=== PATIENT | female | born 1970 | race Caucasian/White ===

== ENCOUNTER 2022-04-21 17:13 | Observation (INO) ==
[2022-04-21] MEDS ORDERED: Ondansetron 4 MG/2 ML VIAL IVP ONE (17:18)
[2022-04-21] MEDS ORDERED: 0.9 % Sodium Chloride 1,000 ML IVC ONE (17:18)
[2022-04-21 17:36] LABS: Bilirubin,Urine Small (Negative); Blood,Urine Large (Negative); Clarity,Urine Cloudy (Clear); Glucose,Urine (UA) Normal (Normal); Ketones,Urine Trace mg/dL (Negative); Leukocyte Esterase,Urine Small (Negative); Nitrite,Urine Negative (Negative); Protein,Urine 100 mg/dL (Neg-Trace); Urobilinogen,Urine >=8.0 mg/dL (Normal)
[2022-04-21 17:37] LABS: Color,Urine Dark Yellow (Yellow)
[2022-04-21 17:38] LABS: Basophils # 0.1 K/mcL (0.0-0.2); Basophils % 0.7 %; Eosinophils # 0.1 K/mcL (0.0-0.6); Eosinophils % 0.6 %; Hematocrit 46.1 % (35.3-44.9); Hemoglobin 15.3 g/dL (11.5-15.4); Immature Granulocytes % 2.3 % (0-4); Lymphocytes % 23.9 %; Mean Corpuscular HGB Conc 33.2 g/dL (31.6-35.5); Mean Corpuscular Hemoglobin 32.3 pg (28.0-33.3); Mean Corpuscular Volume 97.3 fL (83.0-100.0); Monocytes # 0.5 K/mcL (0.0-1.3); Monocytes % 3.6 %; Neutrophils # 8.5 K/mcL (1.6-8.9); Platelet Count 323 K/mcL (140-400); Red Blood Count 4.74 M/mcL (3.82-4.97); Red Cell Distribution Width 13.4 % (11.5-14.5); Segmented Neutrophils % 68.9 %; White Blood Count 12.4 K/mcL (4.3-11.1)
[2022-04-21 17:45] LABS: Amorphous Sediment,Urine Few per hpf (None-Few); Bacteria,Urine Many per hpf (None-Few); RBC,Urine 15-30 per hpf (0-3); Squamous Epithelial Cell,Urine Moderate per hpf (None-Few)
[2022-04-21] MEDS ORDERED: Lidocaine Viscous Oral Soln 15 ML SOLUTION MM ONE (17:53)
[2022-04-21 18:12] LABS: Alanine Aminotransferase 42 Units/L (7-52); Albumin/Globulin Ratio 0.9 (1.1-2.2); Alkaline Phosphatase 435 Units/L (34-104); Amylase < 10 Units/L (29-103); Aspartate Amino Transferase 70 Units/L (13-39); BUN/Creatinine Ratio 18 (6-26); Bilirubin,Direct 0.2 mg/dL (0.0-0.2); Bilirubin,Indirect 0.3 mg/dL (0.0-1.0); Bilirubin,Total 0.5 mg/dL (0.3-1.0); Blood Urea Nitrogen 10 mg/dL (6-20); Calcium 8.8 mg/dL (8.6-10.3); Carbon Dioxide 32 mEq/L (23-29); Chloride 98 mEq/L (98-107); Globulin 3.4 g/dL (2.4-3.5); Glucose 137 mg/dL (70-105); Lipase < 3 Units/L (11-82); Osmolality,Calculated 287 (280-300); Potassium 3.5 mEq/L (3.5-5.1); Sodium 138 mEq/L (136-145); Total Protein 6.4 g/dL (6.4-8.9); eGFR For African Americans > 60 (> 60); eGFR For Non-African Americans > 60 (> 60)
[2022-04-21] MEDS ORDERED: Milk and Molasses Enema 200 ML RC ONE (19:39)
[2022-04-21] MEDS ORDERED: Preparation H Ointment 57 GM TUBE TP PRN (19:39)
[2022-04-21] MEDS ORDERED: Naloxone 0.4 MG/ML INJ IVP PRN (19:39)
[2022-04-21] MEDS ORDERED: Ketorolac 30 MG/ML VIAL IM PRN (19:39)
[2022-04-21] MEDS: Ondansetron ODT 4 MG TAB.RAPDIS PO PRN (20:13)
[2022-04-21] MEDS: 0.9 % Sodium Chloride 1,000 ML IVC SCH (20:14)
[2022-04-21] MEDS ORDERED: cefTRIAXone 2,000 MG in 0.9 % Sodium Chloride 10 ML IVP ONE (21:00)
[2022-04-21] MEDS: polyethylene glycoL 3350 17 GM POWD.PACK PO SCH (22:20)
[2022-04-21] MEDS: *HR* LORazepam 2 MG/ML VIAL IVP PRN (22:33)
[2022-04-21] MEDS: Ketorolac 30 MG/ML VIAL IVP PRN (22:34)
[2022-04-22] MEDS: polyethylene glycoL 3350 17 GM POWD.PACK PO SCH ×4 (01:40→19:36)
[2022-04-22] MEDS: 0.9 % Sodium Chloride 1,000 ML IVC SCH (04:12)
[2022-04-22 07:30] LABS: Hematocrit 43.6 % (35.3-44.9); Hemoglobin 13.9 g/dL (11.5-15.4); Mean Corpuscular HGB Conc 31.9 g/dL (31.6-35.5); Mean Corpuscular Volume 100.2 fL (83.0-100.0); Platelet Count 297 K/mcL (140-400); Red Blood Count 4.35 M/mcL (3.82-4.97); Red Cell Distribution Width 13.7 % (11.5-14.5); White Blood Count 9.1 K/mcL (4.3-11.1)
[2022-04-22] MEDS: Nicotine 21 MG PATCH.TD24 TD SCH (08:27)
[2022-04-22 09:52] LABS: Alanine Aminotransferase 52 Units/L (7-52); Albumin 2.7 g/dL (3.5-5.7); Albumin/Globulin Ratio 0.8 (1.1-2.2); Alkaline Phosphatase 440 Units/L (34-104); Aspartate Amino Transferase 108 Units/L (13-39); BUN/Creatinine Ratio 13 (6-26); Bilirubin,Total 0.4 mg/dL (0.3-1.0); Blood Urea Nitrogen 7 mg/dL (6-20); Calcium 8.2 mg/dL (8.6-10.3); Carbon Dioxide 32 mEq/L (23-29); Chloride 106 mEq/L (98-107); Globulin 3.4 g/dL (2.4-3.5); Glucose 89 mg/dL (70-105); Lipase < 3 Units/L (11-82); Osmolality,Calculated 291 (280-300); Potassium 4.2 mEq/L (3.5-5.1); Sodium 142 mEq/L (136-145); Total Protein 6.1 g/dL (6.4-8.9); eGFR For African Americans > 60 (> 60); eGFR For Non-African Americans > 60 (> 60)
[2022-04-22] MEDS: Ipratropium 1 PUFF INHALER IH SCH ×3 (10:40→22:59)
[2022-04-22] MEDS: Ondansetron ODT 4 MG TAB.RAPDIS PO PRN (13:48)
[2022-04-22] MEDS ORDERED: PARoxetine 20 MG TABLET PO SCH (15:41)
[2022-04-22] MEDS ORDERED: Benzonatate 100 MG CAPSULE PO PRN (17:06)
[2022-04-22] MEDS ORDERED: Acetaminophen/Butalbital/CaffeineTABLET PO PRN (17:33)
[2022-04-22] MEDS ORDERED: Simethicone 80 MG TAB.CHEW PO PRN (18:52)
[2022-04-22] MEDS: *HR* LORazepam 2 MG/ML VIAL IVP PRN (19:35)
[2022-04-22] MEDS: Ketorolac 30 MG/ML VIAL IVP PRN (19:35)
[2022-04-22] MEDS: Topiramate 25 MG TABLET PO SCH (20:53)
[2022-04-22] MEDS: Gabapentin 300 MG CAPSULE PO SCH (20:53)
[2022-04-22] MEDS: Budesonide/Formoterol 160/4.5 1 PUFF INH IH SCH (22:59)
[2022-04-23] MEDS: polyethylene glycoL 3350 17 GM POWD.PACK PO SCH ×4 (02:46→20:57)
[2022-04-23] MEDS: Ipratropium 1 PUFF INHALER IH SCH ×2 (04:14→08:35)
[2022-04-23] MEDS: *HR* Enoxaparin 40 MG/0.4 ML SYRINGE SQ SCH (05:36)
[2022-04-23 07:38] LABS: Basophils # 0.1 K/mcL (0.0-0.2); Basophils % 0.6 %; Eosinophils # 0.1 K/mcL (0.0-0.6); Eosinophils % 1.1 %; Hematocrit 39.2 % (35.3-44.9); Hemoglobin 12.5 g/dL (11.5-15.4); Immature Granulocytes % 2.1 % (0-4); Lymphocytes # 2.5 K/mcL (0.6-4.6); Lymphocytes % 27.7 %; Mean Corpuscular HGB Conc 31.9 g/dL (31.6-35.5); Mean Corpuscular Hemoglobin 31.6 pg (28.0-33.3); Mean Corpuscular Volume 99.2 fL (83.0-100.0); Mean Platelet Volume 10.1 fL (9.4-12.4); Monocytes # 0.3 K/mcL (0.0-1.3); Monocytes % 3.1 %; Neutrophils # 5.8 K/mcL (1.6-8.9); Platelet Count 290 K/mcL (140-400); Red Blood Count 3.95 M/mcL (3.82-4.97); Red Cell Distribution Width 13.4 % (11.5-14.5); Segmented Neutrophils % 65.4 %; White Blood Count 8.9 K/mcL (4.3-11.1)
[2022-04-23 07:55] LABS: BUN/Creatinine Ratio 13 (6-26); Blood Urea Nitrogen 6 mg/dL (6-20); Calcium 8.3 mg/dL (8.6-10.3); Carbon Dioxide 26 mEq/L (23-29); Chloride 105 mEq/L (98-107); Glucose 88 mg/dL (70-105); Osmolality,Calculated 281 (280-300); Potassium 3.9 mEq/L (3.5-5.1); Sodium 137 mEq/L (136-145); eGFR For African Americans > 60 (> 60); eGFR For Non-African Americans > 60 (> 60)
[2022-04-23] MEDS: Budesonide/Formoterol 160/4.5 1 PUFF INH IH SCH ×2 (08:36→22:21)
[2022-04-23] MEDS: Cholecalciferol (D-3) 1,000 UNIT (25MCG) TABLET PO SCH (08:48)
[2022-04-23] MEDS: Gabapentin 300 MG CAPSULE PO SCH ×2 (08:48→20:56)
[2022-04-23] MEDS: Ascorbic Acid 500 MG TABLET PO SCH (08:48)
[2022-04-23] MEDS: Topiramate 25 MG TABLET PO SCH ×2 (08:49→20:56)
[2022-04-23] MEDS: Magnesium Oxide 400 MG TABLET PO SCH (08:49)
[2022-04-23] MEDS: Nicotine 21 MG PATCH.TD24 TD SCH ×2 (08:52→20:55)
[2022-04-23] MEDS: Ketorolac 30 MG/ML VIAL IVP PRN (09:22)
[2022-04-23] MEDS: Ondansetron ODT 4 MG TAB.RAPDIS SL PRN (09:22)
[2022-04-23] MEDS ORDERED: Ipratropium 1 PUFF INHALER IH PRN (09:28)
[2022-04-23] MEDS: *HR* Buprenorphine HCl 8 MG TAB.SUBL SL SCH ×2 (12:46→20:56)
[2022-04-23] MEDS: *HR* LORazepam 2 MG/ML VIAL IVP PRN ×2 (14:21→20:56)
[2022-04-23] MEDS: Methylphenidate HCl 10 MG TABLET PO SCH (16:32)
[2022-04-23] MEDS: PARoxetine 20 MG TABLET PO SCH (16:33)
[2022-04-24] MEDS: polyethylene glycoL 3350 17 GM POWD.PACK PO SCH ×4 (04:59→17:25)
[2022-04-24] MEDS: *HR* Enoxaparin 40 MG/0.4 ML SYRINGE SQ SCH (06:37)
[2022-04-24] MEDS: *HR* LORazepam 2 MG/ML VIAL IVP PRN (06:37)
[2022-04-24 08:17] LABS: Basophils % 0.5 %; Eosinophils # 0.2 K/mcL (0.0-0.6); Eosinophils % 1.9 %; Hematocrit 40.9 % (35.3-44.9); Hemoglobin 13.1 g/dL (11.5-15.4); Immature Granulocytes % 2.3 % (0-4); Lymphocytes % 25.2 %; Mean Corpuscular Hemoglobin 31.7 pg (28.0-33.3); Mean Platelet Volume 9.8 fL (9.4-12.4); Monocytes # 0.3 K/mcL (0.0-1.3); Monocytes % 4.3 %; Neutrophils # 5.3 K/mcL (1.6-8.9); Platelet Count 317 K/mcL (140-400); Red Blood Count 4.13 M/mcL (3.82-4.97); Red Cell Distribution Width 13.5 % (11.5-14.5); Segmented Neutrophils % 65.8 %
[2022-04-24 08:47] LABS: BUN/Creatinine Ratio 12 (6-26); Blood Urea Nitrogen 6 mg/dL (6-20); Calcium 8.7 mg/dL (8.6-10.3); Carbon Dioxide 28 mEq/L (23-29); Chloride 104 mEq/L (98-107); Glucose 87 mg/dL (70-105); Osmolality,Calculated 285 (280-300); Potassium 3.9 mEq/L (3.5-5.1); Sodium 139 mEq/L (136-145); eGFR For African Americans > 60 (> 60); eGFR For Non-African Americans > 60 (> 60)
[2022-04-24] MEDS: Ascorbic Acid 500 MG TABLET PO SCH (10:31)
[2022-04-24] MEDS: Topiramate 25 MG TABLET PO SCH ×2 (10:31→20:53)
[2022-04-24] MEDS: Methylphenidate HCl 10 MG TABLET PO SCH ×2 (10:31→16:01)
[2022-04-24] MEDS: PARoxetine 20 MG TABLET PO SCH (10:31)
[2022-04-24] MEDS: Magnesium Oxide 400 MG TABLET PO SCH (10:31)
[2022-04-24] MEDS: Cholecalciferol (D-3) 1,000 UNIT (25MCG) TABLET PO SCH (10:31)
[2022-04-24] MEDS: Nicotine 21 MG PATCH.TD24 TD SCH (10:32)
[2022-04-24] MEDS: Gabapentin 300 MG CAPSULE PO SCH ×2 (10:32→20:54)
[2022-04-24] MEDS: *HR* Buprenorphine HCl 8 MG TAB.SUBL SL SCH ×2 (10:39→20:54)
[2022-04-24] MEDS: Budesonide/Formoterol 160/4.5 1 PUFF INH IH SCH ×2 (11:31→22:47)
[2022-04-24] MEDS: Multivit/Ca/Min/Fe/FA 1 TAB TABLET PO SCH (17:25)
[2022-04-24 19:46] VITALS: RESP 18
[2022-04-24] MEDS: Ondansetron ODT 4 MG TAB.RAPDIS SL PRN (20:49)
[2022-04-24] MEDS: SUMAtriptan succinate 25 MG TABLET PO PRN (21:34)
[2022-04-25] MEDS: polyethylene glycoL 3350 17 GM POWD.PACK PO SCH ×3 (03:30→12:23)
[2022-04-25] MEDS: *HR* Enoxaparin 40 MG/0.4 ML SYRINGE SQ SCH (06:02)
[2022-04-25 07:02] VITALS: BP 137/74; PULSE 73; TEMP 98.6
[2022-04-25] MEDS: Methylphenidate HCl 10 MG TABLET PO SCH ×2 (08:06→12:23)
[2022-04-25] MEDS: *HR* Buprenorphine HCl 8 MG TAB.SUBL SL SCH (08:07)
[2022-04-25] MEDS: Gabapentin 300 MG CAPSULE PO SCH (08:07)
[2022-04-25] MEDS: Magnesium Oxide 400 MG TABLET PO SCH (08:07)
[2022-04-25] MEDS: Multivit/Ca/Min/Fe/FA 1 TAB TABLET PO SCH (08:07)
[2022-04-25] MEDS: Topiramate 25 MG TABLET PO SCH (08:07)
[2022-04-25] MEDS: Ascorbic Acid 500 MG TABLET PO SCH (08:07)
[2022-04-25] MEDS: Nicotine 21 MG PATCH.TD24 TD SCH (08:08)
[2022-04-25] MEDS: Cholecalciferol (D-3) 1,000 UNIT (25MCG) TABLET PO SCH (08:08)
[2022-04-25] MEDS ORDERED: PARoxetine 10 MG TABLET PO SCH (09:00)
[2022-04-25 10:12] VITALS: O2SAT 93
[2022-04-25] MEDS: Budesonide/Formoterol 160/4.5 1 PUFF INH IH SCH (10:14)
[2022-04-25] MEDS: SUMAtriptan succinate 25 MG TABLET PO PRN (13:57)
== END 2022-04-25 18:08 | disposition home or self-care (01) ==
LOC: EMEROOPIK 17:13 → INPPIK 17:13
PROVIDERS: ADMIT Family Medicine; ATTEND Family Medicine